=== PATIENT | male | born 1995 | race Caucasian/White ===

== ENCOUNTER 2019-09-11 21:59 | Emergency (ER) | payer OTHER ==
[~2019-09-11] VITALS: Ht 170.2 cm; Wt 72.6 kg
[2019-09-11 22:03] VITALS: BP 115/62
--- NOTE | 2019-09-11 22:07 | NUR ---
PT AMBULATED TO BED 6
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
--- NOTE | 2019-09-11 22:35 | NUR ---
Dr. Santacruz examining patient.
[2019-09-11] MEDS ORDERED: IBUPROFEN 600 MG TAB PO ONE (22:40)
[2019-09-11 23:20] VITALS: BP 115/62
== END 2019-09-11 23:19 | disposition home or self-care (01) ==
LOC: MED 21:59
DX: M54.2 Cervicalgia (principal); M54.5 Low back pain; J45.909 Unspecified asthma, uncomplicated; V89.2XXA Person injured in unspecified motor-vehicle accident, traffic, initial encounter; Y93.89 Activity, other specified; Y92.89 Other specified places as the place of occurrence of the external cause; Y99.8 Other external cause status
CPT/HCPCS: 99282